=== PATIENT | male | born 1955 | race Caucasian/White ===

== ENCOUNTER → 2022-09-06 | Outpatient (CLI) | payer OTHER ==
--- NOTE | 2022-09-06 09:27 | Diagnostic Imaging Report ---
INDICATION: Abdominal pain. PROCEDURE: Ultrasound abdomen complete. TECHNIQUE: Multiple Real-time grayscale images were obtained of the abdomen in various projections. FINDINGS: The liver is normal in size at approximately 15 cm. The portal vein is patent and shows normal direction of flow. No liver mass is detected. The gallbladder is without stones or sludge. No wall thickening or biliary ductal dilatation is seen. The pancreas is mostly obscured by bowel gas. The spleen is normal in size at 9.3 cm. The aorta is nonaneurysmal. The right kidney is 11.9 cm in length and the left kidney is 10.9 cm in length. No calculus or hydronephrosis is identified. There is no ascites. IMPRESSION: Essentially unremarkable abdominal ultrasound. There is no evidence of cholelithiasis or acute cholecystitis. Dictated by: Dictated on workstation # [id number]
== END ==
LOC: RAD 08:15
PROVIDERS: ATTEND Internal Medicine
DX: R10.13 Epigastric pain (principal)
CPT/HCPCS: 76700

== ENCOUNTER 2023-06-13 21:40 | Observation (INO) | payer OTHER ==
[~2023-06-13] VITALS: Ht 180.3 cm; Wt 85.5 kg
[2023-06-13 23:21] LABS: BASOPHILS # (AUTO) 0.1 10^3/uL (0.0-0.1); BASOPHILS % (AUTO) 1 % (0-10); EOSINOPHILS # (AUTO) 0.3 10^3/uL (0.0-0.3); EOSINOPHILS % (AUTO) 3 % (0-10); HEMATOCRIT 45 % (40-54); HEMOGLOBIN 15.5 g/dL (13.3-17.7); LYMPHOCYTES # (AUTO) 2.6 10^3/uL (1.0-4.0); LYMPHOCYTES % (AUTO) 28 % (12-44); MEAN CORPUSCULAR HEMOGLOBIN 29 pg (25-34); MEAN CORPUSCULAR HGB CONC 34 g/dL (32-36); MEAN CORPUSCULAR VOLUME 86 fL (80-99); MEAN PLATELET VOLUME 9.5 fL (9.0-12.2); MONOCYTES # (AUTO) 1.1 10^3/uL (0.0-1.0); MONOCYTES % (AUTO) 12 % (0-12); NEUTROPHILS # (AUTO) 5.4 10^3/uL (1.8-7.8); NEUTROPHILS % (AUTO) 57 % (42-75); PLATELET COUNT 296 10^3/uL (130-400); WHITE BLOOD COUNT 9.4 10^3/uL (4.3-11.0)
[2023-06-13 23:41] LABS: ALBUMIN 3.7 GM/DL (3.2-4.5); POTASSIUM 3.8 MMOL/L (3.6-5.0)
[2023-06-13 23:42] LABS: CALCIUM 9.2 MG/DL (8.5-10.1)
[2023-06-13 23:42] LABS: BACTERIA,URINE NEGATIVE /HPF; BILIRUBIN,URINE NEGATIVE (NEGATIVE); CLARITY,URINE CLEAR; COLOR,URINE YELLOW; GLUCOSE, URINE (UA) NEGATIVE (NEGATIVE); KETONES,URINE NEGATIVE (NEGATIVE); LEUKOCYTE ESTERASE ,URINE NEGATIVE (NEGATIVE); NITRITE,URINE NEGATIVE (NEGATIVE); PH,URINE 5.5 (5-9); PROTEIN,URINE NEGATIVE (NEGATIVE)
[2023-06-13 23:44] LABS: TOTAL PROTEIN 6.9 GM/DL (6.4-8.2)
[2023-06-13 23:45] LABS: BILIRUBIN,TOTAL 0.4 MG/DL (0.1-1.0)
[2023-06-13 23:47] LABS: CREATININE SERUM 0.82 MG/DL (0.60-1.30)
[2023-06-13 23:51] LABS: INR 1.1 (0.8-1.4); PROTHROMBIN TIME PATIENT 14.2 SEC (12.2-14.7)
--- NOTE | 2023-06-14 00:27 | ED Abdominal Pain ---
General Chief Complaint: Abdominal/GI Problems Stated Complaint: SENT BY FOR PANCREATITIS Nursing Triage Note: PATIENT STATES THAT HE SAW DR. ALCANTAR TODAY AND HAD A CT AND THAT SENT THE RESULTS HERE AND CALLED HIM AND TOLD HIM THAT HE NEEDED TO COME TO THE ER AND THAT HE HAS PANCREATITES. HE DENIES PAIN AT THIS TIME OR ANY OTHER COMPLAINS. HE STATES THAT HE DRINKS 3-4 BEERS/DAY AND SMOKES A PACK AND A HALF CIGS A DAY. Source of Information: Patient Exam Limitations: No Limitations History of Present Illness Date Seen by Provider: Jun 13, 2023 Time Seen by Provider: 22:51 Initial Comments This 67-year-old gentleman was evaluated for nausea, vomiting, and abdominal pain through Dr. Alcantar's office with labs and a CT scan. He reportedly had pancreatitis with a lipase done through the clinic over 1000. CT reportedly also showed pancreatitis. He was directed to the emergency room several hours ago. Patient reports that he took oral contrast for the CT scan which caused him severe pain. He recovered from that pain now is no longer hurting. He denies any nausea or vomiting at this time. He does admit to drinking alcohol daily, approximately 3-4 beers. He reports these episodes of nausea, vomiting, and pain, in waves. Recently the pain started in the epigastric area and wrapped around both flanks. He tends to have episodes about every 4 to 6 months. Allergies and Home Medications Allergies Coded Allergies: No Known Drug Allergies (Unverified , 06/14/23) Patient Home Medication List Home Medication List Reviewed: Yes Review of Systems Review of Systems Constitutional: no symptoms reported EENTM: No Symptoms Reported Respiratory: No Symptoms Reported Cardiovascular: No Symptoms Reported Gastrointestinal: See HPI Genitourinary: No Symptoms Reported Musculoskeletal: no symptoms reported Skin: no symptoms reported Psychiatric/Neurological: No Symptoms Reported Endocrine: No Symptoms Reported Hematologic/Lymphatic: No Symptoms Reported Past Tywlxku-Gqdnpi-Xrgnow Hx Patient Social History Tobacco Use?: Yes Tobacco type used: Cigarettes Smoking Status: Current Everyday Smoker Substance use?: No Alcohol Use?: Yes Alcohol type: Beer Alcohol Frequency: Daily Past Medical History Surgeries: Yes Eye Surgery (Cataracts), Vasectomy Respiratory: No Cardiac: Yes Hypertension Genitourinary: No Gastrointestinal: No Musculoskeletal: No Endocrine: No HEENT: No Cancer: No Psychosocial: Yes (Alcohol dependence) Physical Exam Vital Signs Vital Signs - First Documented 06/13/23 22:35 Temp 36.8 Pulse 88 Resp 17 B/P (MAP) 125/80 (95) Capillary Refill : Less Than 3 Seconds Height/Weight/BMI Height: '" Weight: lbs. oz. 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5 9.0-12.2 fL Immature Granulocyte % (Auto) 0 % Neutrophils (%) (Auto) 57 42-75 % Lymphocytes (%) (Auto) 28 12-44 % Monocytes (%) (Auto) 12 0-12 % Eosinophils (%) (Auto) 3 0-10 % Basophils (%) (Auto) 1 0-10 % Neutrophils # (Auto) 5.4 1.8-7.8 10^3/uL Lymphocytes # (Auto) 2.6 1.0-4.0 10^3/uL Monocytes # (Auto) 1.1 H 0.0-1.0 10^3/uL Eosinophils # (Auto) 0.3 0.0-0.3 10^3/uL Basophils # (Auto) 0.1 0.0-0.1 10^3/uL Immature Granulocyte # (Auto) 0.0 0.0-0.1 10^3/uL Prothrombin Time 14.2 12.2-14.7 SEC INR Comment 1.1 0.8-1.4 Sodium Level 135 135-145 MMOL/L Potassium Level 3.8 3.6-5.0 MMOL/L Chloride Level 103 98-107 MMOL/L Carbon Dioxide Level 19 L 21-32 MMOL/L Anion Gap 13 5-14 MMOL/L Blood Urea Nitrogen 6 L 7-18 MG/DL Creatinine 0.82 0.60-1.30 MG/DL Estimat Glomerular Filtration Rate 97 BUN/Creatinine Ratio 7 Glucose Level 115 H 70-105 MG/DL Calcium Level 9.2 8.5-10.1 MG/DL Corrected Calcium 9.4 8.5-10.1 MG/DL Total Bilirubin 0.4 0.1-1.0 MG/DL Aspartate Amino Transf (AST/SGOT) 24 5-34 U/L Alanine Aminotransferase (ALT/SGPT) 20 0-55 U/L Alkaline Phosphatase 55 40-136 U/L Total Protein 6.9 6.4-8.2 GM/DL Albumin 3.7 3.2-4.5 GM/DL Lipase 561 H 8-78 U/L Serum Alcohol 52 H <10 MG/DL Urine Color YELLOW Urine Clarity CLEAR Urine pH 5.5 5-9 Urine Specific [place] 1.010 L 1.016-1.022 Urine Protein NEGATIVE NEGATIVE Urine Glucose (UA) NEGATIVE NEGATIVE Urine Ketones NEGATIVE NEGATIVE Urine Nitrite NEGATIVE NEGATIVE Urine Bilirubin NEGATIVE NEGATIVE Urine Urobilinogen 0.2 < = 1.0 MG/DL Urine Leukocyte Esterase NEGATIVE NEGATIVE Urine RBC (Auto) NEGATIVE NEGATIVE Urine RBC NONE /HPF Urine WBC NONE /HPF Urine Squamous Epithelial Cells NONE /HPF Urine Crystals NONE /LPF Urine Bacteria NEGATIVE /HPF Urine Casts NONE /LPF Urine Mucus NEGATIVE /LPF Urine Culture Indicated NO My Orders Orders - ASIM HITCHCOCK MD Alcohol (06/13/23 22:51) Cbc With Automated Diff (06/13/23 22:51) Comprehensive Metabolic Panel (06/13/23 22:51) Lipase (06/13/23 22:51) Protime With Inr (06/13/23 22:51) Ua Culture If Indicated (06/13/23 22:51) Ed Iv/Invasive Line Start (06/13/23 22:51) Lactated Ringers (Lr 1000 Ml Iv Solution (06/14/23 00:45) Pantoprazole Injection (Protonix Injecti (06/14/23 00:45) Medications Given in ED Current Medications Medications Dose Ordered Sig/Emilee Route Start Time Stop Time Status Last Admin Dose Admin Lactated Ringer's 1,000 ml @ 0 mls/hr Q0M ONCE IV 06/14/23 00:45 06/14/23 00:46 DC 06/14/23 00:43 1,000 MLS/HR Pantoprazole 40 mg ONCE ONCE IV 06/14/23 00:45 06/14/23 00:46 DC 06/14/23 00:43 40 MG Vital Signs/I&O 06/13/23 22:35 Temp 36.8 Pulse 88 Resp 17 B/P (MAP) 125/80 (95) Blood Pressure Mean: 95 Progress Progress Note #1: Time: 00:26 Progress Note Chief complaint and triage information was reviewed at 2251. Labs were ordered accordingly. Patient was interviewed and examined at 0012. Interview and exam were delayed due to the critical needs of other patients and high volume in the ER during his visit. Stability with normal vital sign was noted at review of his triage. Patient voices no complaints at this time. Progress Note #2: Time: 01:30 Progress Note Labs were reviewed and interpreted by me. CBC and CMP were grossly unremarkable. Pancreatitis was confirmed by elevated lipase of 561. Patient was treated with a liter of LR and Protonix. We discussed admission for observation to be kept n.p.o. and provided supportive care while he recovers from pancreatitis versus returning home and trying a clear liquid diet without consumption of alcohol. The risks of returning home include possibility of alcohol withdrawal or rebound of pancreatitis without symptoms controlled with IV medications. Patient elects to stay in the hospital for treatment. Case was discussed with Dr. Alvarado, hospitalist on-call who excepted admission. CODE STATUS was discussed with the patient who elects full code. Alcohol withdrawal protocol was added to the orders. CT scan from earlier in the day was not available for review as it was done at any [facility] facility. Departure Communication (Admissions) Time/Spoke to Admitting Phy: 00:34 Dr. Alvarado Impression Primary Impression: Acute pancreatitis Qualified Codes: K85.20 - Alcohol induced acute pancreatitis without necrosis or infection Additional Impression: Alcohol dependence Qualified Codes: F10.29 - Alcohol dependence with unspecified alcohol- induced disorder Disposition: ADMITTED INPATIENT Condition: Stable Admissions Decision to Admit Reason: Admit from ER (General) Decision to Admit/Date: Jun 14, 2023 Time/Decision to Admit Time: 00:34 Departure-Patient Inst. Referrals: GALE ALCANTAR DO (PCP/Family) Primary Care Physician ASIM HITCHCOCK MD Jun 14, 2023 00:27
[2023-06-14] MEDS ORDERED: LACTATED RINGERS 1,000 ML 1,000 ML IV ONE (00:45)
[2023-06-14] MEDS ORDERED: PANTOPRAZOLE INJECTION 40 MG VIAL IV ONE (00:45)
[2023-06-14 02:37] VITALS: BP 142/84
[2023-06-14 03:03] VITALS: BP 139/85
[2023-06-14] MEDS ORDERED: fentaNYL INJECTION 100 MCG/2 ML VIAL IV PRN (03:15)
[2023-06-14] MEDS ORDERED: 1/2 NS IV SOLUTION 1000 ML 1,000 ML IV PRN (03:15)
[2023-06-14] MEDS ORDERED: LORazepam 1 MG TABLET PO PRN (03:15)
[2023-06-14] MEDS ORDERED: ONDANSETRON INJECTION 4 MG/2 ML (SDV) IV PRN (03:15)
[2023-06-14] MEDS ORDERED: D5 1/2 NS 1,000 ML IV 1,000 ML IV PRN (03:15)
[2023-06-14] MEDS: D5 1/2NS + KCL 20 MEQ/L 1000ML 1,000 ML IV SCH ×3 (03:18→16:38)
[2023-06-14 06:10] LABS: ALBUMIN 3.4 GM/DL (3.2-4.5); BILIRUBIN,TOTAL 0.4 MG/DL (0.1-1.0); CALCIUM 9.1 MG/DL (8.5-10.1); CREATININE SERUM 0.77 MG/DL (0.60-1.30); POTASSIUM 4.4 MMOL/L (3.6-5.0); TOTAL PROTEIN 6.2 GM/DL (6.4-8.2)
[2023-06-14 06:12] LABS: BASOPHILS # (AUTO) 0.1 10^3/uL (0.0-0.1); BASOPHILS % (AUTO) 1 % (0-10); EOSINOPHILS # (AUTO) 0.4 10^3/uL (0.0-0.3); EOSINOPHILS % (AUTO) 4 % (0-10); HEMATOCRIT 45 % (40-54); HEMOGLOBIN 15.3 g/dL (13.3-17.7); LYMPHOCYTES # (AUTO) 2.9 10^3/uL (1.0-4.0); LYMPHOCYTES % (AUTO) 34 % (12-44); MEAN CORPUSCULAR HEMOGLOBIN 29 pg (25-34); MEAN CORPUSCULAR HGB CONC 34 g/dL (32-36); MEAN CORPUSCULAR VOLUME 86 fL (80-99); MEAN PLATELET VOLUME 9.9 fL (9.0-12.2); MONOCYTES # (AUTO) 0.9 10^3/uL (0.0-1.0); MONOCYTES % (AUTO) 11 % (0-12); NEUTROPHILS # (AUTO) 4.3 10^3/uL (1.8-7.8); NEUTROPHILS % (AUTO) 50 % (42-75); PLATELET COUNT 286 10^3/uL (130-400); WHITE BLOOD COUNT 8.6 10^3/uL (4.3-11.0)
[2023-06-14 06:46] LABS: EOSINOPHILS % (MANUAL) 4 %; LYMPHOCYTES % (MANUAL) 33 %; MONOCYTES % (MANUAL) 8 %; NEUTROPHILS % (MANUAL) 51 %; RBC MORPH NORMAL; REACTIVE LYMPHOCYTES 4 %
[2023-06-14 07:57] VITALS: BP 122/74
[2023-06-14] MEDS ORDERED: PANTOPRAZOLE INJECTION 40 MG VIAL IV SCH (09:00)
[2023-06-14] MEDS ORDERED: THIAMINE INJECTION 100 MG, FOLIC ACID INJECTION 1 MG, MAGNESIUM SULFATE 2 GM, MULTIVITA... IV SCH ×5 (09:00)
[2023-06-14] MEDS ORDERED: LOSA50TA63 PO (09:52)
--- NOTE | 2023-06-14 11:41 | Short Stay Summary-Hospitalist ---
NEETA WHITTAKER 06/14/23 1141: History of Present Illness HPI/Chief Complaint Harman Stanley is a 67 year old male with alcohol dependence and HTN, here for oneil luation of abdominal pain present for 4 days starting on 06/10. He reports feeling severe epigastric pain that radiated to his lower back that was constant for 2-3 days, then resolved by 06/14. He saw Dr. Alcantar, who did a CT which showed inflammation of the pancreas and sent him to the ED for pancreatitis. Pt reports multiple episodes of this pain over the past 10 years. He's been drinking 3-4 beers daily for the past 15 years and does not plan on quitting any time soon. He had a previous abdominal US in Sep 14 which was unremarkable. On admission his lipase was elevated at 561 and it is now 367. His serum alcohol was 52 and he had a decreased total protein at 6.2. He reported improvement of his symptoms with fluids and rest. He was given thiamine and lorazepam for alcohol withdrawal. Source: patient Exam Limitations: no limitations Date Seen 06/14/23 Time Seen by a Provider: 10:30 Attending Physician Raffaele Alcantar DO PCP Admitting Physician: Alex Alvarado MD Attending Physician: Alex Alvarado MD Referring Physician Date of Admission Jun 14, 2023 at 02:06 Home Medications & Allergies Home Medications Reviewed patient Home Medication Reconciliation performed by pharmacy medication reconciliations collection systems technician and/or nursing. Patients Allergies have been reviewed. Allergies Allergies Coded Allergies No Known Drug Allergies (Unverified06/14/23) Past Medical/Social/Family Hx Patient Social History Tobacco Use?: Yes Tobacco type used: Cigarettes Smoking Status: Current Everyday Smoker Use of E-Cig and/or Vaping dev: No Substance use?: No Alcohol Use?: Yes Alcohol type: Beer Alcohol Frequency: Daily Pt stated abuse/neglect: No Current Status Advance Directives: No Communicates: Verbally Primary Language: Latvian Preferred Spoken Language: Latvian Is interpretation needed?: No Review of Systems Constitutional: no symptoms reported Respiratory: no symptoms reported Cardiovascular: no symptoms reported Gastrointestinal: see HPI Musculoskeletal: No back pain Physical Exam Physical Exam Vital Signs Vital Signs - First Documented 06/13/23 06/14/23 22:35 02:10 Temp 36.8 Pulse 88 Resp 17 B/P (MAP) 125/80 (95) Pulse Ox 95 O2 Delivery Room Air Capillary Refill : Less Than 3 Seconds Height, Weight, BMI Height: '" Weight: lbs. oz. kg; 26.30 BMI Method: General Appearance: No Apparent Distress, WD/WN HEENT: PERRL/EOMI Respiratory: Lungs Clear, Normal Breath Sounds, No Accessory Muscle Use, No Respiratory Distress Cardiovascular: Regular Rate, Rhythm, No Gallop, No Murmur Gastrointestinal: Normal Bowel Sounds, No Organomegaly, No Pulsatile Mass, Non Tender Extremity: No Pedal Edema Neurologic/Psychiatric: Alert, Oriented x3 Skin: Normal Color, Warm/Dry Results Results/Procedures Labs Laboratory Tests 06/13/23 23:15 06/14/23 05:32 Patient resulted labs reviewed. Short Stay Diagnosis Discharge Diagnosis-Short Stay Admission Diagnosis Acute pancreatitis Alcohol dependence Final Discharge Diagnosis Acute pancreatitis Alcohol dependence Conclusion Plan Acute pancreatitis given fluids and rest no further treatment Alcohol dependence consult with social media developer on cessation/withdrawal plan discussed connection between alcohol use and abdominal pain HTN continue losartan Diagnosis/Problems Diagnosis/Problems (1) Acute pancreatitis Status: Acute Qualifiers: Qualified Codes: K85.20 - Alcohol induced acute pancreatitis without necrosis or infection (2) Alcohol dependence Status: Chronic Qualifiers: Qualified Codes: F10.29 - Alcohol dependence with unspecified alcohol- induced disorder (3) HTN (hypertension) Status: Chronic Qualifiers: Qualified Codes: I10 - Essential (primary) hypertension BRANDON ERIC MD 06/14/23 1510: Short Stay Diagnosis Conclusion Plan Patient presented with abdominal pain and CT findings concerning for pancreatitis with elevated lipase. Lipase remained elevated in the emergency department he was admitted for IV fluids and pain control. Lipase has continued to trend down. Will advance diet and see if he tolerates that. Discussed importance of safely quit alcohol. He states he has not even thought about the possibility of stopping yet. Informed him that alcohol cessation if not done with a medical provider can be fatal. Supervisory-Addendum Brief Verification & Attestation Participated in pt care: history, MDM, physical Personally performed: exam, history, MDM, supervision of care Care discussed with: Medical Student Procedures: n/a Results interpretation: Verified all documentation Verification and Attestation of Medical Student E/M Service A medical student performed and documented this service in my presence. I reviewed and verified all information documented by the medical student and made modifications to such information, when appropriate. I personally performed the physical exam and medical decision making. Brandon Eric, Jun 14, 2023,14:59 NEETA WHITTAKER Jun 14, 2023 11:41 BRANDON ERIC MD Jun 14, 2023 15:10
[2023-06-14 11:48] VITALS: BP 123/83
--- NOTE | 2023-06-14 14:57 | Discharge Inst-Simple/Standard ---
Discharge Inst-Standard Patient Instructions/Follow Up Plan of Care/Instructions/FU: Please continue to take your medications as written. Please follow up with your primary care doctor to follow up this hospital stay. Activity as Tolerated: Yes Discharge Diet: Avoid Fatty Foods Return to The Hospital For: Chest pain, shortness of breath, fever, weakness, if you feel you are getting worse. BRANDON RICKETTS MD Jun 14, 2023 14:57
[2023-06-14 16:12] VITALS: BP 138/85
== END 2023-06-14 19:14 | disposition home or self-care (01) ==
LOC: EDUNIT# 21:40 → ER 21:44 → 4TH 06-14 02:06
PROVIDERS: ADMIT Internal Medicine; ATTEND Internal Medicine
DX: K85.20 Alcohol induced acute pancreatitis without necrosis or infection (principal); F10.288 Alcohol dependence with other alcohol-induced disorder; I10 Essential (primary) hypertension; Y90.9 Presence of alcohol in blood, level not specified; F17.210 Nicotine dependence, cigarettes, uncomplicated; Z28.310 Unvaccinated for COVID-19
CPT/HCPCS: 80053 ×2; 81000; 83690 ×2; 85007; 85025; 85027; 85610; 96361; 96374; 96375; 96376; 99284; G0378; G0480; 36415; 80320